=== PATIENT | female | born 1965 | race Caucasian/White ===

== ENCOUNTER 2018-11-01 14:00 | Outpatient (CLI) | payer BC ==
[~2018-11-01 14:00] MED LIST: DEXILANT30 MG PO; HYDROCODONE-APA1 TAB PO; IBUPROFEN800 MG PO; PERCOCET 10/3251 TA1 PO; PROBIOTIC
== END 2018-11-01 14:30 | disposition home or self-care (01) ==
LOC: D.MAMMO 14:00
DX: Z12.31 Encounter for screening mammogram for malignant neoplasm of breast (principal)